=== PATIENT | female | born 2005 | race Two or more races ===

== ENCOUNTER 2024-09-11 04:17 | Emergency (ER) | payer MEDICAID, SELFPAY ==
[2024-09-11 04:18] VITALS: BP 107/61; PULSE 83; RESP 16; TEMP 36.2; O2SAT 99; BMI 28.3
[2024-09-11 04:37] LABS: MANUAL DIFF FLAG NO
[2024-09-11 04:38] LABS: Basophils Percent Auto 0.4 % (0-2); Eosinophils Absolute Auto 0.2 X10*3/uL (0.0-0.4); Eosinophils Percent Auto 1.7 % (0-4); Hemoglobin 12.4 g/dl (12.0-16.0); Imm Gran Abs Auto 0.03 X10*3/uL (0.00-0.03); Imm Gran Pct Auto 0.3 % (0.0-0.4); Lymphocytes Absolute Auto 2.5 X10*3/uL (1.2-4.9); Lymphocytes Percent Auto 24.4 % (20-40); Mean Corpuscular HGB Conc 33.5 g/dl (31.0-35.0); Mean Corpuscular Hemoglobin 26.2 pg (27.0-33.0); Mean Corpuscular Volume 78.1 fL (80.0-98.0); Mean Platelet Volume 10.1 fL (9.4-12.3); Monocytes Absolute Auto 0.8 X10*3/uL (0.1-1.2); Monocytes Percent Auto 7.3 % (2-11); Neutrophils Absolute Auto 6.8 x10*3/uL (2.0-8.3); Neutrophils Percent Auto 65.9 % (45-73); Platelet Count 330 X10*3/uL (160-400); Red Blood Count 4.74 X10*6/uL (4.20-5.50); Red Cell Distribution Width 12.7 % (11.0-16.0); White Blood Count 10.4 X10*3/uL (4.8-10.8)
--- NOTE | 2024-09-11 04:41 | ED_ITS ---
HPI - Abdominal Pain General Chief Complaint: Abdominal Pain Stated Complaint: Stomach Pain Time Seen by Provider: 09/11/24 04:35 Source: patient Mode of arrival: ambulatory Limitations: no limitations History of Present Illness ED Provider: Dr. Sintia Bah HPI narrative: Patient comes to the emergency room complaining of 2 weeks of epigastric burning sensation with food. Patient states that she can tolerate liquids but could not so much. Patient complaining of nausea vomiting , no diarrhea. Denies fever chills, no URI or UTI symptoms. Related Data Previous Rx's ?Medication ?Instructions ?Recorded doxylamine 20 mg-pyridoxine 20 mg 1 tab PO BID #20 tabs 09/11/24 tablet,immediate and delayed release vitamin no.167-folic acid 1 tab PO DAILY #30 tabs 09/11/24 400 mcg-dha 25 mg chewable tablet (One-A-Day ) Allergies Allergy/AdvReac Type Severity Reaction Status Date / Time No Known Allergies Allergy Verified 09/11/24 04:20 Review of Systems Review of Systems Constitutional : No Weight loss, No Fever, No Chills, No Night Sweats, No Fatigue, No Malaise ENT/Mouth : No Hearing loss, No Ear Pain, No Nasal Congestion, No Sinus Pain, No Hoarseness, No sore throat, No Rhinorrhea, No Swallowing Difficulty Eyes: No Eye Pain, No Swelling, No Redness, No Foreign Body, No Discharge, No Vision Changes Cardiovascular : No Chest Pain, No SOB, No Dyspnea on Exertion, No Orthopnea, No Edema, No Palpitations Respiratory : No Cough, No Sputum, No Wheezing, No Smoke Exposure, No Dyspnea Gastrointestinal : Complaining of nausea and vomiting No Diarrhea, No Constipation, complaining of epigastric burning sensation for 2 weeks, worse with eating solids Genitourinary : no irregular bleeding, No Dysuria, No Urinary Frequency, No Hematuria, No Urinary Incontinence, No Urgency, No Flank Pain, No Urinary Flow Changes, No Hesitancy Musculoskeletal : No joint pain, No Myalgias, No Joint Swelling Skin : No Skin Lesions, No rash Neuro : No Weakness, No Numbness, No Paresthesias, No Loss of Consciousness, No Dizziness, No Headache Psych : No Anxiety/Panic, No Depression, No SI/HI/AH/VH, No Social Issues, Heme/Lymph: No Bruising, No Bleeding,No Lymphadenopathy Endocrine : No Polyuria, No Polydipsia, No Temperature Intolerance [facility] Social History Social History Smoked in Last 30 Days: No Use of substances other than those prescribed or required for medical reasons: No Advance Directives: No Do you have a plan to hurt others: No Plan Physical Exam ED Vital Signs: Vital Signs - 24 hr 09/11/24 04:18 Temperature 97.1 F Pulse Rate 83 Respiratory Rate 16 Blood Pressure 107/61 Pulse Oximetry 99 Oxygen Delivery Method Room Air BMI result Body Mass Index 28.3 Const Other: Appearance: Alert. Oriented X3. No acute distress. Well appearing Eyes: Pupils equal, round and reactive to light. ENT: Pharynx normal. Neck: Normal inspection. Neck supple. No lymph nodes noted. No crepitus CVS: Normal heart rate and rhythm. Pulses normal. Normal S1 and S2 Respiratory: No respiratory distress. Breath sounds normal. No Wheezing. No rales Abdomen: Soft and nontender. No rigidity. No distention. Skin: Skin warm and dry. Normal skin color. Normal skin turgor. Extremities: No lower extremity edema. No Lacerations. No Rash Neuro: Oriented X 3. No motor deficit. No sensory deficit. Moving all extremities. No slurred speech. CN 2 through 12 grossly intact Psych: calm, cooperative, normal affect Course Course Course Narrative: -all of patient's labs pending -patient receiving a GI cocktail consisting of famotidine, Maalox and viscous lidocaine Medical Decision Making Medical Decision Making [facility] Narrative: My interpretation of labs: Normal hematology, chemistry, urine positive, beta hCG 119,551 -patient unaware that she was . 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 Patient states she had a miscarriage about 8 months ago Differential Diagnosis Differential Diagnoses: The differential diagnosis associated with the presentation includes (Gastritis, gastroenteritis, peptic ulcer disease, , nausea vomiting) Lab Data [facility] Lab Attestation statement: I reviewed the patient's lab results. 09/11/24 04:33 09/11/24 04:33 Labs: Lab Results 09/11/24 09/11/24 Range/Units 04:33 05:31 WBC 10.4 (4.8-10.8) X10*3/uL RBC 4.74 (4.20-5.50) X10*6/uL Hgb 12.4 (12.0-16.0) g/dl Hct 37.0 (37.0-47.0) % MCV 78.1 L (80.0-98.0) fL MCH 26.2 L (27.0-33.0) pg MCHC 33.5 (31.0-35.0) g/dl RDW 12.7 (11.0-16.0) % Plt Count 330 (160-400) X10*3/uL MPV 10.1 (9.4-12.3) fL Immature Gran % (Auto) 0.3 (0.0-0.4) % Neut % (Auto) 65.9 (45-73) % Lymph % (Auto) 24.4 (20-40) % [place] % (Auto) 7.3 (2-11) % Eos % (Auto) 1.7 (0-4) % Baso % (Auto) 0.4 (0-2) % Lymph # (Auto) 2.5 (1.2-4.9) X10*3/uL [place] # (Auto) 0.8 (0.1-1.2) X10*3/uL Eos # (Auto) 0.2 (0.0-0.4) X10*3/uL Baso # (Auto) 0.0 (0.0-0.2) X10*3/uL Abs Immat Gran (auto) 0.03 (0.00-0.03) X10*3/uL Absolute Neuts (auto) 6.8 (2.0-8.3) x10*3/uL Absolute Nucleated RBC 0.000 (0.0-0.012) X10*3/uL Nucleated RBC % (auto) 0.0 (0.0-0.2) /100WBC Sodium 139 (135-145) mmol/L Potassium 3.8 (3.3-5.1) mmol/L Chloride 110 H (96-108) mmol/L Carbon Dioxide 19 L (22-29) mmol/L Anion Gap 14 (12-20) BUN 10 (9-16) mg/dL Creatinine 0.75 (0.5-1.4) mg/dL Estim Creat Clear Calc 105.6 Estimated GFR > 60 Random Glucose 98 (60-115) mg/dL Calcium 8.6 (8.4-10.2) mg/dL Lipase 36 (8-78) U/L Beta HCG, Quant [id number] mIU/mL Urine Color Yellow Urine Appearance Clear Urine pH 7.0 (5.0-9.0) Ur Specific [place] >= 1.030 H (1.005-1.025) Urine Protein Trace (Neg-Trace) mg/dL Urine Glucose (UA) Negative (Negative) mg/dL Urine Ketones Negative (Negative) mg/dL Urine Blood Negative (Negative) Urine Nitrite Negative (Negative) Ur Leukocyte Esterase Negative (Negative) Urine Test POSITIVE H (NEGATIVE) Medications Administered Discontinued Medications Generic Name Dose Route Start Last Admin Trade Name Freq PRN Reason Stop Dose Admin Al Hydroxide/Mg Hydroxide 30 ml 09/11/24 04:40 09/11/24 05:04 Magnesium Hydrox/Alum Hydrox 30 Ml Oral.Susp PO 09/11/24 04:41 30 ml ONCE ONE Administration Famotidine 20 mg 09/11/24 04:40 09/11/24 05:04 Famotidine 20 Mg Tablet PO 09/11/24 04:41 20 mg ONCE ONE Administration Lidocaine HCl 15 ml 09/11/24 04:40 09/11/24 05:04 Lidocaine Hcl Viscous 2 % 15 Ml Solution MUCOUS MEM 09/11/24 04:41 15 ml ONCE ONE Administration Discharge Plan Discharge Clinical Impression: , Acute epigastric pain, Nausea & vomiting Patient Disposition: Home, Self-Care Instructions: Acute Nausea and Vomiting (ED) Additional Instructions: Please follow-up with your primary care physician tomorrow. If you have any worsening or new symptoms, please return to the emergency room or call 911 Prescriptions: New doxylamine-pyridoxine (vit B6) 20-20 mg tablet,IR,delayed rel,biphasic 1 tab PO BID Qty: 20 0RF One-A-Day 400 mcg- 25 mg tablet,chewable 1 tab PO DAILY Qty: 30 0RF Print Language: Latvian
[2024-09-11 04:51] LABS: Anion Gap 14 (12-20); Blood Urea Nitrogen 10 mg/dL (9-16); Calcium 8.6 mg/dL (8.4-10.2); Carbon Dioxide 19 mmol/L (22-29); Chloride 110 mmol/L (96-108); Creatinine Clr Calc Pharmacy 105.6; Estimated Glomerular Filt Rate > 60; Glucose Random 98 mg/dL (60-115); Lipase 36 U/L (8-78); Potassium 3.8 mmol/L (3.3-5.1); Sodium 139 mmol/L (135-145)
[2024-09-11] MEDS: Lidocaine HCl Viscous 2 % 15 ML SOLUTION MUCOUS MEM (05:04)
[2024-09-11] MEDS: Magnesium Hydrox/Alum Hydrox 30 ML ORAL.SUSP PO (05:04)
[2024-09-11] MEDS: Famotidine 20 MG TABLET PO (05:04)
[2024-09-11 05:37] LABS: Appearance Urine Clear; Color Urine Yellow; Glucose Urine UA Negative (Negative); Leukocyte Esterase Urine Negative (Negative); Nitrite Urine Negative (Negative); Specific Gravity - Urine >= 1.030 (1.005-1.025); Urine Blood Negative (Negative); Urine Ketones Negative (Negative); Urine Protein Trace mg/dL (Neg-Trace)
[2024-09-11 05:39] LABS: UPreg QC Valid YES; Urine Pregnancy POSITIVE (NEGATIVE)
[2024-09-11 05:40] LABS: HCG Quantitative 119551 mIU/mL
[2024-09-11 06:37] VITALS: BP 107/61; PULSE 83; RESP 16; TEMP 36.2; O2SAT 99
== END 2024-09-11 06:40 | disposition home or self-care (01) ==
PROVIDERS: Emergency Provider Emergency Medicine
DX: O26.899 Other specified pregnancy related conditions, unspecified trimester (principal); R10.13 Epigastric pain; R11.2 Nausea with vomiting, unspecified
CPT/HCPCS: 36415; 80048; 81003; 81025; 83690; 84702; 85025; 99283; 99284

== ENCOUNTER 2024-12-05 23:14 | Emergency (ER) | payer SELFPAY ==
[2024-12-05 23:20] VITALS: BP 119/73; PULSE 78; RESP 18; TEMP 36.6; O2SAT 100; BMI 27.2
[2024-12-05 23:35] VITALS: BP 119/73; PULSE 78; RESP 18; TEMP 36.6; O2SAT 100
[2024-12-05 23:45] LABS: MANUAL DIFF FLAG NO
[2024-12-05 23:55] LABS: Basophils Percent Auto 0.3 % (0-2); Eosinophils Absolute Auto 0.2 X10*3/uL (0.0-0.4); Hematocrit 40.7 % (37.0-47.0); Hemoglobin 13.4 g/dl (12.0-16.0); Imm Gran Abs Auto 0.04 X10*3/uL (0.00-0.03); Imm Gran Pct Auto 0.4 % (0.0-0.4); Lymphocytes Absolute Auto 2.4 X10*3/uL (1.2-4.9); Lymphocytes Percent Auto 23.7 % (20-40); Mean Corpuscular HGB Conc 32.9 g/dl (31.0-35.0); Mean Corpuscular Hemoglobin 26.1 pg (27.0-33.0); Mean Corpuscular Volume 79.3 fL (80.0-98.0); Mean Platelet Volume 9.9 fL (9.4-12.3); Monocytes Absolute Auto 0.8 X10*3/uL (0.1-1.2); Monocytes Percent Auto 8.1 % (2-11); Neutrophils Absolute Auto 6.6 x10*3/uL (2.0-8.3); Neutrophils Percent Auto 65.5 % (45-73); Platelet Count 312 X10*3/uL (160-400); Red Blood Count 5.13 X10*6/uL (4.20-5.50); Red Cell Distribution Width 13.5 % (11.0-16.0)
[2024-12-06 00:16] LABS: Alanine Aminotransferase 13 U/L (0-31); Albumin Level 4.4 g/dL (3.5-5.0); Alkaline Phosphatase 96 U/L (39-117); Anion Gap 10 (12-20); Aspartate Amino Transferase 19 U/L (5-31); Bilirubin Total 0.2 mg/dL (0.0-1.0); Blood Urea Nitrogen 13 mg/dL (9-16); Calcium 9.1 mg/dL (8.4-10.2); Carbon Dioxide 23 mmol/L (22-29); Chloride 109 mmol/L (96-108); Creatinine Clr Calc Pharmacy 107.6; Estimated Glomerular Filt Rate > 60; Glucose Random 108 mg/dL (60-115); Lipase 27 U/L (8-78); Potassium 3.6 mmol/L (3.3-5.1); Sodium 138 mmol/L (135-145)
[2024-12-06 00:20] LABS: HCG Quantitative < 2 mIU/mL
--- NOTE | 2024-12-06 01:29 | ED.GENADULT ---
HPI - General Adult General Chief complaint: Vaginal Bleeding Stated complaint: pain in the ovaries-bleeding Time Seen by Provider: 12/06/24 01:29 History of Present Illness ED Provider: Garcia [place] narrative: The patient is a 19-year-old female who says that she has been having problems with vaginal bleeding for almost 3 months. The patient says that her bleeding was very heavy last week and she was also having lower abdominal pain. She has had to miss some days at work. She has been in touch with her inspector material disposition at [facility]. She was told that she could not get an appointment for a couple of weeks and was advised to go to the emergency room. She has had no fever, sweats, chills. She has had some nausea but no vomiting. The patient received an IUD from the Gynecology office at [facility] about 3 months ago around the time her chronic vaginal bleeding problems started. Related Data Previous Rx's ?Medication ?Instructions ?Recorded doxylamine 20 mg-pyridoxine 20 mg 1 tab PO BID #20 tabs 09/11/24 tablet,immediate and delayed release vitamin no.167-folic acid 1 tab PO DAILY #30 tabs 09/11/24 400 mcg-dha 25 mg chewable tablet (One-A-Day ) ibuprofen 400 mg tablet 400 mg PO Q6H PRN pain #14 tabs 12/06/24 tranexamic acid 650 mg tablet 1,300 mg (2 x 650 mg) PO TID 5 12/06/24 days #30 tabs Allergies Allergy/AdvReac Type Severity Reaction Status Date / Time No Known Allergies Allergy Verified 12/05/24 23:20 Review of Systems Review of Systems: Yes all other systems are reviewed and are negative PMFSH Social History Social History Smoked in Last 30 Days: No Use of substances other than those prescribed or required for medical reasons: No Advance Directives: No Do you have a plan to hurt others: No Plan Patient : No Physical Exam ED Vital Signs: Vital Signs - 24 hr 12/05/24 23:20 12/05/24 23:35 12/06/24 01:45 Temperature 97.8 F 97.8 F 97.7 F Pulse Rate 78 78 80 Respiratory Rate 18 18 15 Blood Pressure 119/73 119/73 116/75 Pulse Oximetry 100 100 100 Oxygen Delivery Method Room Air Room Air Room Air 12/06/24 03:14 Temperature 97.7 F Pulse Rate 80 Respiratory Rate 15 Blood Pressure 116/75 Pulse Oximetry 100 Oxygen Delivery Method Room Air BMI result Body Mass Index 27.2 Const Other: The patient is awake and alert. She was reading something on her phone when I entered the room. She did not appear in any distress. HENMT Other: The face is symmetrical. ?Mucous membranes moist. Eyes Other: Pupils are round equal, conjunctivae are clear, extraocular movements intact. Neck Neck: Yes full ROM Resp Effort & Inspection: normal respiratory effort Auscultation: clear to auscultation bilaterally Cardio Rate: regular rate Rhythm: regular rhythm Heart sounds: S1 normal heart sound present and S2 normal heart sound present GI Other: The abdomen is soft. I did not appreciate any significant tenderness. Skin Other: Skin is dry and unremarkable Neuro Other: The patient is awake and alert with a normal mental status. Cranial nerves are intact. She moves her extremities normally. Her gait is normal. Extrem Other: No peripheral edema Medications Administered Discontinued Medications Generic Name Dose Route Start Last Admin Trade Name Laura PRN Reason Stop Dose Admin Acetaminophen 975 mg 12/06/24 01:38 12/06/24 01:47 Acetaminophen 325 Mg Tablet PO 12/06/24 01:39 975 mg ONCE ONE Administration Ketorolac Tromethamine 30 mg 12/06/24 01:38 12/06/24 01:48 Ketorolac Tromethamine 30 Mg/Ml Vial IM 12/06/24 01:39 30 mg ONCE ONE Administration Medical Decision Making Medical Decision Making [facility] Narrative: The patient is a 19-year-old female who seems to describe a lot of vaginal bleeding over the last few months. Clinically she looks well. Her hemoglobin is normal. She complains also some abdominal pain but her abdomen seems benign and she does not look uncomfortable. She is not . She apparently has an IUD. She was given an injection of ketorolac. She looks well enough for outpatient management. She has a inspector material disposition at [facility]. She will be placed on a course of TXA orally. She should follow up with her inspector material disposition next week. Lab Data 12/05/24 23:40 12/05/24 23:40 Labs: Lab Results 12/05/24 12/06/24 Range/Units 23:40 02:33 WBC 10.0 (4.8-10.8) X10*3/uL RBC 5.13 (4.20-5.50) X10*6/uL Hgb 13.4 (12.0-16.0) g/dl Hct 40.7 (37.0-47.0) % MCV 79.3 L (80.0-98.0) fL MCH 26.1 L (27.0-33.0) pg MCHC 32.9 (31.0-35.0) g/dl RDW 13.5 (11.0-16.0) % Plt Count 312 (160-400) X10*3/uL MPV 9.9 (9.4-12.3) fL Immature Gran % (Auto) 0.4 (0.0-0.4) % Neut % (Auto) 65.5 (45-73) % Lymph % (Auto) 23.7 (20-40) % [place] % (Auto) 8.1 (2-11) % Eos % (Auto) 2.0 (0-4) % Baso % (Auto) 0.3 (0-2) % Lymph # (Auto) 2.4 (1.2-4.9) X10*3/uL [place] # (Auto) 0.8 (0.1-1.2) X10*3/uL Eos # (Auto) 0.2 (0.0-0.4) X10*3/uL Baso # (Auto) 0.0 (0.0-0.2) X10*3/uL Abs Immat Gran (auto) 0.04 H (0.00-0.03) X10*3/uL Absolute Neuts (auto) 6.6 (2.0-8.3) x10*3/uL Absolute Nucleated RBC 0.000 (0.0-0.012) X10*3/uL Nucleated RBC % (auto) 0.0 (0.0-0.2) /100WBC Sodium 138 (135-145) mmol/L Potassium 3.6 (3.3-5.1) mmol/L Chloride 109 H (96-108) mmol/L Carbon Dioxide 23 (22-29) mmol/L Anion Gap 10 L (12-20) BUN 13 (9-16) mg/dL Creatinine 0.78 (0.5-1.4) mg/dL Estim Creat Clear Calc 107.6 Estimated GFR > 60 Random Glucose 108 (60-115) mg/dL Calcium 9.1 (8.4-10.2) mg/dL Total Bilirubin 0.2 (0.0-1.0) mg/dL AST 19 (5-31) U/L ALT 13 (0-31) U/L Alkaline Phosphatase 96 (39-117) U/L Total Protein 8.0 (6.5-8.0) g/dL Albumin 4.4 (3.5-5.0) g/dL Lipase 27 (8-78) U/L Beta HCG, Quant < 2 mIU/mL Urine Color Yellow Urine Appearance Cloudy Urine pH 6.5 (5.0-9.0) Ur Specific [place] >= 1.030 H (1.005-1.025) Urine Protein Trace (Neg-Trace) mg/dL Urine Glucose (UA) Negative (Negative) mg/dL Urine Ketones Negative (Negative) mg/dL Urine Blood Negative (Negative) Urine Nitrite Negative (Negative) Ur Leukocyte Esterase Negative (Negative) Discharge Plan Discharge Clinical Impression: Abnormal vaginal bleeding Patient Disposition: Home, Self-Care Additional Instructions: I have sent a prescription for a medicine called tranexamic. Please take this 3 times a day for 5 days. My hope is this will help reduce your bleeding. Your blood testing was very reassuring however. There is no sign of significant blood loss. Please keep your appointment with your regular inspector material disposition at [facility] next week as scheduled. You may use ibuprofen as needed for pain. Return to the emergency room if you feel significantly worse. Prescriptions: New tranexamic acid 650 mg tablet 1,300 mg PO TID 5 Days Qty: 30 0RF ibuprofen 400 mg tablet 400 mg PO Q6H PRN (Reason: pain) Qty: 14 0RF No Action doxylamine-pyridoxine (vit B6) 20-20 mg tablet,IR,delayed rel,biphasic 1 tab PO BID Qty: 20 0RF One-A-Day 400 mcg- 25 mg tablet,chewable 1 tab PO DAILY Qty: 30 0RF Referrals: Jonathan Hester MD [Physician] - (vaginal bleeding) Stand Alone Forms: Work/School Release Interventions: ED Discharge Assessment Last Done: 12/06/24 03:14 Discharge Date/Time: 12/06/24 03:16 Print Language: Irish
[2024-12-06 01:45] VITALS: BP 116/75; PULSE 80; RESP 15; TEMP 36.5; O2SAT 100
[2024-12-06] MEDS: Acetaminophen 325 MG TABLET 975 MG PO (01:47)
[2024-12-06] MEDS: Ketorolac Tromethamine 30 MG/ML VIAL IM (01:48)
[2024-12-06 02:40] LABS: Appearance Urine Cloudy; Color Urine Yellow; Glucose Urine UA Negative (Negative); Leukocyte Esterase Urine Negative (Negative); Nitrite Urine Negative (Negative); PH 6.5 (5.0-9.0); Specific Gravity - Urine >= 1.030 (1.005-1.025); Urine Blood Negative (Negative); Urine Ketones Negative (Negative); Urine Protein Trace mg/dL (Neg-Trace)
[2024-12-06 03:14] VITALS: BP 116/75; PULSE 80; RESP 15; TEMP 36.5; O2SAT 100
== END 2024-12-06 03:16 | disposition home or self-care (01) ==
PROVIDERS: Emergency Provider Emergency Medicine
DX: N93.9 Abnormal uterine and vaginal bleeding, unspecified (principal); Z97.5 Presence of (intrauterine) contraceptive device
CPT/HCPCS: 36415; 80053; 81003; 83690; 84702; 85025; 96372; 99284; J1885

== ENCOUNTER 2025-10-31 21:54 | Emergency (ER) | payer MEDICAID, SELFPAY ==
[2025-10-31 22:16] VITALS: BP 121/71; PULSE 85; RESP 18; TEMP 36.6; O2SAT 96; BMI 28.2
--- OUTSIDE RECORDS SUMMARY | 2025-11-01 00:09 | XMS_ITS | Encounter Summary ---
Author Organization [facility] Address [address] [place] [address] Care Team Providers Care Corrective Therapy Aide Teacher Name Role Phone Nakia Anthony Unavailable [phone] Tom Chicas MD Primary Care Provider [phone] Encounter Details Date Type Department Care Team (Late st Contact Info) Description 09/19/2024 Orders Only [facility] [address] [place] [address] Provider, Not In System Social History Tobacco Use Types Packs/Day Years Used Date Smoking Tobacco: Never Smokeless Tobacco: Never Alcohol Use Standard Drinks/Week Comments Not Currently 0 (1 standard drink = 0.6 oz pur e alcohol) Alcohol Answer Date Recorded How often do you have a drink containing alcohol ? 0 05/29/2024 How many drinks containing a lcohol do you have on a typical day when you are drinking? 0 05/29/2024 How often do you have six or more drinks on one occasion? 0 05/29/2024 Depression Answer Date Recorded Patient Health Questionnaire-9 Score 14 04/10/2024 Patient Health Questionnaire-9 Score 14 04/10/2024 Last PHQ-9: Questionnaire Data Not on file 0 04/10/2024 Housing Stability Answer Date Recorded What is your housing situation today? I have [employer] [place] 04/10/[address] you li ve. Do you have problems with any of the following? Pests such as bugs, ants, or mice;Mold;Inadequate heat;Water leaks 04/10/2024 Food Insecurity Answer Date Recorded Within the past 12 months, y ou worried that your food would run out before you got money to buy more: Sometimes True 2023 Within the past 12 months,th e food you bought just didn't last and you didn't have enough money to get more: Sometimes True 04/10/2024 Transportation Answer Date Recorded In the past 12 months, has l ack of transportation kept you from medical appts, meetings, work or from getting things needed for daily living? No 08/28/2023 Intimate Partner Violence Answer Date R ecorded Within the last year, have y ou been afraid of your partner or ex-partner? 2 05/29/2024 Within the last year, have y ou been humiliated or emotionally abused in other ways by your partner or ex-partner? 2 Within the last year, have y ou been kicked, hit, slapped, or otherwise physically hurt by your partner or ex-partner? 2 05/29/2024 Within the last year, have y ou been raped or forced to have any kind of sexual activity by your partner or ex-partner? 2 05/29/2024 Utilities Answer Date Recorded In the past 12 months, has t he electric, gas, oil or water company threatened to shut off services in your home? No 08/28/2023 Depression Answer Date Recorded Patient Health Questionnaire-2 Score 3 04/10/2024 Internet Access Answer Date Recorded Internet Access Q1 Yes 08/22/2024 Internet Access Q2 Not on file 08/22/2024 Comments No Sex and Gender Information Value Date Recorded Sex Assigned at Female 09/12/2022 10:35 AM EDT Legal Sex Female 10:35 AM EDT Gender Identity Female 09/12/2022 10:35 AM EDT Sexual Orientation Choose not to disclose 2021 10:35 AM EDT documented as of this encounter Plan of Treatment Upcoming Encounters Date Type Department Care Team (Late st Contact Info) Description 12/25/2025 12:40 PM EST Office Visit [facility] [address] [place] [address] Tom Chicas MD [address] [place] [address] documented as of this encounter Procedures Procedure Name Priority Date/Time Associated Diagnosis Comments TISSUE PATHOLOGY Routine 09/17/2024 8:43 AM EST documented in this encounter Results * Tissue Pathology (09/17/2024 8:43 AM EST) Tissue us Not In System Provider LAB PATHOLOGY ORDERABLES Edited Result - Final documented in this encounter Visit Diagnoses Not on filedocumented in this encounter Additional Health Concerns Assessment Noted Time PHQ-9 Depression Total Score: 14 024 3:21 PM EDT documented as of this encounter Care Teams Corrective Therapy Aide Teacher Relationship Specialty Start Date End Date Tom Chicas MD PCP - General Internal Medicine 08/15/24 Nakia Anthony FNP Family Medicine 09/09/22 documented as of this encounter
--- OUTSIDE RECORDS SUMMARY | 2025-11-01 00:09 | XMS_ITS | Encounter Summary ---
Author Organization [facility] Address [address] [place] [address] Care Team Providers Care Wire Harness Design Engineer Name Role Phone Nakia Anthony Unavailable [phone] Tom Chicas MD Primary Care Provider [phone] Encounter Details Date Type Department Care Team (Late st Contact Info) Description 11/20/2024 Orders Only [place] [facility] [address] [place] [address] Provider, Not In System Social [...] Description 12/25/2025 12:40 PM EST Office Visit [facility] [address] [place] [phone] Tom Chicas MD [address] [place] [address] documented as of this encounter Procedures Procedure Name Priority Date/Time Associated Diagnosis Comments BETA-HCG Routine 11/11/2024 3:26 PM EST documented in this encounter Results * Lactate dehydrogenase (11/11/2024 3:26 PM EST) Blood Venous blood specimen / Unknown us Not In System Provider LAB BLOOD ORDERABLES Edit ed Result - Final documented in this encounter Visit Diagnoses Not on filedocumented in this encounter Additional Health Concerns Assessment Noted Time PHQ-9 Depression Total Score: 14 024 3:21 PM EDT documented as of this encounter Care Teams Wire Harness Design Engineer Relationship Specialty Start Date End Date Tom Chicas MD PCP - General Internal Medicine 08/15/24 Nakia Anthony FNP Family Medicine 09/09/22 documented as of this encounter
--- OUTSIDE RECORDS SUMMARY | 2025-11-01 00:09 | XMS_ITS | Encounter Summary ---
Author Organization [facility] Address [address] [place] [address] Care Team Providers Care Asset Protection Professional Name Role Phone Nakia Anthony Unavailable [phone] Tom Chicas MD Primary Care Provider [phone] Encounter Details Date Type Department Care Team (Late st Contact Info) Description 08/21/2024 Orders Only [place] [facility] [address] [place] [address] Provider, Not In System Social [...] Description 12/25/2025 12:40 PM EST Office Visit [facility] [address] [place] [phone] Tom Chicas MD [address] [place] [address] documented as of this encounter Procedures Procedure Name Priority Date/Time Associated Diagnosis Comments INSULIN Routine 08/19/2024 8:10 AM EDT documented in this encounter Results * Insulin (08/19/2024 8:10 AM EDT) Blood Venous blood specimen / Unknown us Not In System Provider LAB BLOOD ORDERABLES Edit ed Result - Final documented in this encounter Visit Diagnoses Not on filedocumented in this encounter Additional Health Concerns Assessment Noted Time PHQ-9 Depression Total Score: 14 024 3:21 PM EDT documented as of this encounter Care Teams Asset Protection Professional Relationship Specialty Start Date End Date Tom Chicas MD PCP - General Internal Medicine 08/15/24 Nakia Anthony FNP Family Medicine 09/09/22 documented as of this encounter
--- OUTSIDE RECORDS SUMMARY | 2025-11-01 00:10 | XMS_ITS | Clinical Summary ---
Author Organization [facility] Address [address] [place] [address] Phone Care Team Providers Care Photographer Aerial Name Role Phone Lin Beaucahmp NP Primary Care Provider [phone] Allergies Active Allergy Reactions Criticality Noted Date Comments Latex Erythema Low 09/12/2024 Medications No known medications Active Problems Problem Noted Date Diagnosed Date IUD (intrauterine device) in place 10/17/2024 PCOS (polycystic ovarian syndrome) 05/06/2023 Assessment & Plan (05/06/2023 8:21 AM EDT): -Discussed s/sx of PCOS. -Advised that there is no cure for PCOS but that it is manageable -Ordered testosterone level -US from 02/13/23 reads: 1. Uterus appears grossly normal. 2. The endometrium appears somewhat echogenic and thickened measuring 13 mm but there are no focal masses or defects. 3. The ovaries contain multiple peripheral follicles in a pattern suggestive of PCOS. However, clinical correlation is required. 4. There is no free fluid. -Discussed ways on how to manage PCOS. -Recommended a Mirena IUD -An intrauterine device or IUD is a small T-shaped plastic device that is placed in the uterus for long-acting contraception. The Mirena or Kylenna contain levonorgestrel which is a progesterone only hormone. It works by thickening the cervical mucus which then slows the transport of the ovum through the fallopian tube and inhibits sperm motility and function. They are good for 5 years. Although new studies have shown that they are good for 6 years. This form of BC can decrease blood loss and dysmenorrhea during menses. In some women it completely stops their period. SE includes irregular bleeding or spotting for the first few months and/or absence or decrease in bleeding. There is a risk of expulsion of 2%-10% within the first year. We can place the IUD in the office. During placement procedure you may experience some cramping. There is a risk of perforating the uterus during insertion. However we measure the size of the uterus prior to inserting the IUD to avoid that risk. There is also a risk of infection. This procedure is performed in a sterile manner to avoid the risk of infection. You should use condoms for 7 days after insertion. The IUD does not protect against STI. All questions were answered. Pt chooses to continue with this method for BC. -She will schedule an appointment for placement Dysmenorrhea 04/02/2021 Assessment & Plan (05/06/2023 8:20 AM EDT): -Has her period every 3 months and sometimes twice a month. Ranges from heavy to light - test today was neg Assessment & Plan (04/15/2021 8:38 PM EDT): -Discussed possible etiologies for dysmenorrhea like PCOS. Pt is not concerned about her menses at this time. -Upreg neg. -Discussed that management of dysmenorrhea is starting BC Resolved Problems Problem Noted Date Diagnosed Date Resolved Date Unwanted 09/17/2024 Encounter for initial prescr iption of intrauterine contraceptive device (IUD) 09/17/2024 10/17/2024 Nexplanon removal 06/17/2024 10/17/2024 Pelvic pain 04/05/2023 01/06/2025 Assessment & Plan (05/06/2023 8:54 AM EDT): -Not currently taking OCPs -One partner her boyfriend Cis male monogamous -Discussed US results -Reviewed and discussed MD Ro recommendations from previous visit. -Recommended a Mirena IUD -Due to hx and based on s/sx it seems like PCOS is the curprit of her pain however Endometriosis has not been r/o. -Explained to the pt that the one true way of diagnosing endometriosis is by doing a diagnostic Laparoscopy surgery. -Given that she has not truly tried symptomatic relieve by OCPS or IUDs. I strongly recommended her to try a form of BC first before getting a diagnostic Laparoscopy. Advised that we are well experienced in treating PCOS s/sx and that we should try to manage that first. Pt agrees and inquired more info on BC. -BC pamphlets given to pt control counseling 04/02/2021 Assessment & Plan (04/15/2021 8:44 PM EDT): -Discussed safe sex practices and ways of preventing STI. -Pt will like STI testing today including serum testing -Discussed contraceptive options of Nexplanon, IUDs, OCPs, Nuvaring, Depo Provera, condoms, diaphragm, spermicide, and sterilization. Reviewed risks, benefits, side effects and effectiveness of each method. Pt advised that BC does not protect against STI and recommended condom use for the protection of STI. -Advised that an IUD is as effective as a BTL with the exception that it is reversible. Advised that because of her age OBs may not do a BTL. -Pt requested more information on an IUD -An intrauterine device or IUD is a small T-shaped plastic device that is placed in the uterus for long-acting contraception. The Mirena or Kylenna contain levonorgestrel which is a progesterone only hormone. It works by thickening the cervical mucus which then slows the transport of the ovum through the fallopian tube and inhibits sperm motility and function. They are good for 5 years. Although new studies have shown that they are good for 6 years. This form of BC can decrease blood loss and dysmenorrhea during menses. In some women it completely stops their period. SE includes irregular bleeding or spotting for the first few months and/or absence or decrease in bleeding. There is a risk of expulsion of 2%-10% within the first year. We can place the IUD in the office. During placement procedure you may experience some cramping. There is a risk of perforating the uterus during insertion. However we measure the size of the uterus prior to inserting the IUD to avoid that risk. There is also a risk of infection. This procedure is performed in a sterile manner to avoid the risk of infection. You should use condoms for 7 days after insertion. The IUD does not protect against STI. All questions were answered. -Pt considering Mirena IUD. Informational Pamphlet given -Pt will call to make an appointment for IUD placement Encounters Date Type Department Care Team Description 09/09/2025 3:22 PM EDT - 09/09/2025 11:59 PM EDT Hospital Encounter [facility] [address] [place] [address] Luis Alberto Hayes MD Discharge Disposition: Home or Self Care 09/08/2025 Telephone [facility] Obstetrics [facility] Gynecology Clinic [facility] [place] [address] Alondra Moy, RN UPTs from Last 3 Months Immunizations Immunization Administration Dates Next Due DTaP-IPV 12/30/2008, 5,2005,2004, HPV9 08/01/2019,07/10/2018 Hepatitis B Adult 2004,2004,02/26/20 04 Hib,PRP-T 06/09/2005,2004,2004 IPV 10/16/2008,2005,2004 ,2004 MMR 08/16/2006,2005 Meningococcal MCV4P 11/16/2020 Pneumococcal conjugate PCV13 2005,12/09/19 05 Rho (D) Immune Globulin 09/17/2024,01/10/2024 Tdap 07/10/2018 Varicella 10/23/2008,2005 Family History Medical History Relation Comments Psychiatric disorder Brother Psychiatric disorder Mother Relation Status Comments Brother Mother Social History Tobacco Use Types Packs/Day Years Used Date Smoking Tobacco: Never Smokeless Tobacco: Never Tobacco Cessation:Counseling Given: Not Answered Alcohol Use Standard Drinks/Week Comments Never 0 (1 standard drink = 0.6 oz pur e alcohol) Education Answer Date Recorded Are you interested in more education? Not on demario e 03/10/2023 Are you concerned about learning? Not on file 03/10/2023 No 03/10/2023 No 03/10/2023 Digital Access Answer Date Recorded No 04/05/2023 No 04/05/2023 Reliable internet access at home? Not on file 04/05/2023 Device with a working camera? Not on file Intimate Partner Violence Answer Date R ecorded Are you denied basic needs s uch as food, clothing, or medical care? No 09/17/2024 In the past 12 months have y ou been in a relationship with a person who hurts, threatens, or tries to control you? No 09/17/2024 Are you denied basic needs s uch as food, clothing, or medical care? No 09/17/2024 In the past 12 months have y ou been in a relationship with a person who hurts, threatens, or tries to control you? No 09/17/2024 Comments No Sex and Gender Information Value Date Recorded Sex Assigned at Not on file Legal Sex Female 8:40 AM EDT Gender Identity Not on file Sexual Orientation Not on file Last Filed Vital Signs Vital Sign Reading Time Taken Comments Blood Pressure 120/70 03/14/2025 4:03 PM EDT Pulse 67 09/17/2024 12:05 PM EST Temperature 36.1 C (97 F) 09/17/2024 12:35 PM EST Respiratory Rate 22 09/17/2024 12:05 PM EST Oxygen Saturation 99% 09/17/2024 12:35 PM EST Inhaled Oxygen Concentration - - Weight 68 kg (150 lb) 11/11/2024 8:37 AM EST Height 160 cm (5' 3 ) 03/14/2025 4:03 PM EDT Body Mass Index 26.57 10/17/2024 12:04 PM EST Plan of Treatment Health Maintenance Due Date Last Done Comments DEPRESSION SCREENING 2016 MENINGOCOCCAL VACCINES (B) (1 of 2 - Standard) 2020 ADOLESCENT UNIVERSAL LIPID SCREENING 02/22/2021 PAP SMEAR 02/22/2025 INFLUENZA VACCINE (#1) 2025 COVID-19 VACCINE (2 - season) 2025 07/21/2022 SMOKING Hx and SMOKELESS TOBACCO SCREENING 01/02/2026 01/02/2025 CHLAMYDIA SCREENING 01/24/2026 01/24/2025, 09/17/2024, 01/05/2024, Additional history exists Adult Td,Tdap Booster 07/10/2028 07/10/2018 COMBINED DTaP,Tdap,Td (6 - Td or Tdap) 07/10/2028 07/10/2018, 12/30/2008, 06/09/2005, Additional history exists PNEUMOCOCCAL VACCINES (0-49 years) Aged Out 2005, 2004 No longer eligibl e based on patient's age to complete this topic HIB VACCINES Completed 06/09/2005, 11/14, 2004 MMR VACCINES Completed 08/16/2006, 2005 HPV VACCINES Completed 08/01/2019, 07/10/2018 MENINGOCOCCAL VACCINES (ACWY) Completed 11/16/2020 HEPATITIS C SCREENING Completed 01/24/2025, 025 HIV ONE-TIME SCREENING (18-65 YEARS) Completed 01/24/2025 HEPATITIS A VACCINES Aged Out No long er eligible based on patient's age to complete this topic Medical Devices Implanted Type Area Adjuster Arbitrator Device Identifier Shelf Expiration Date Model / Serial / Lot Iud Implanted:06/19 (Quantity not on file) Intrauterine Device Device Contraceptive 52mg Iud Mirena - Must Order In Multiples Of 5 - [id number] Implanted:Qty: 1 on 09/17/2024 by Mago Solo MD at [facility] N/A: Uterus [facility] [place] 10/12/2026 [id number] / [id number] / [id number] Procedures Procedure Name Priority Date/Time Associated Diagnosis Comments HUMAN CHORIONIC GONADOTROPIN (HCG), QUANTITATIVE, BLOOD Routine 09/09/2025 3:31 PM EDT Positive urine test CHLAMYDIA TRACHOMATIS AND NEISSERIA GONORRHOEAE NUCLEIC ACID DETECTION Routine 01/24/2025 3:15 PM EDT Screening for STD (sexually transmitted disease) HEPATITIS C ANTIBODY, QUALITATIVE Routine 01/24/2025 3:15 PM EDT Screening for STD (sexually transmitted disease) from Last 3 Months or Most Recently Relevant to Health Maintenance Results * HCG (Quantitative, Blood) (09/09/2025 3:31 PM EDT) HCG BETA 0.2 mIU/mL [facility] Comment: Interpretation: FEMALE: Negative: Less than or equal to 1 mIU/mL. 4 Weeks Post Conception: 9.5 - 750 mIU/mL. 12 Weeks Post Conception: [id number] - [id number] mIU/mL. Test Methodology Sayra [id number] Patient results determined by assays using different manufacturers or methods may not be comparable. Blood 09/09/2025 3:31 PM EDT 09/09/2025 3:43 PM EDT Luis Alberto Hayes MD LAB BLOOD BKR ORDERABLES Dalia l Result Performing Organization Address [facility]/ZIP Co de Phone Number [address] [address] * Chlamydia trachomatis and Neisseria gonorrhoeae Nucleic Acid Amplification (01/24/2025 3:15 PM EDT) CHLAMYDIA TRACHOMATIS Not Detected Not Detected [facility] NEISERIA GONORRHOEAE Not Detected Not Detected [facility] SPECIMEN TYPE URINE [facility] Urine (Urine) 01/24/2025 3:1 5 PM EDT 01/24/2025 3:17 PM EDT Luis Alberto Hayes MD LAB GENERAL ORDERABLES Final Result Performing Organization Address [facility] Co de Phone Number [address] [address] * Hepatitis C antibody, qualitative (01/24/2025 3:15 PM EDT) HCV NON-REACTIV E NON-REACTI VE [facility] Blood 01/24/2025 3:15 PM EDT 01/24/2025 3:16 PM EDT Luis Alberto Hayes MD LAB BLOOD BKR ORDERABLES Dalia l Result Performing Organization Address [facility] Co de Phone Number [address] [phone] from Last 3 Months or Most Recently Relevant to Health Maintenance Insurance [employer] NET PARTIAL Member Subscriber Plan / Payer (Ef fective 2025-) Name:Arron Zhang Sang Relation to Subscriber:Self Name:Arron Zhang Sang Payer ID:Not on file Group ID:Not on file Type:Medicaid Address: [address] [employer] NET PARTIAL Member Subscriber Plan / Payer (Ef fective 2025-) Name:Sang Estevez Relation to Subscriber:Self Name:Sang Estevez Payer ID:Not on file Group ID:Not on file Type:Medicaid Address: [address] [employer] NET PARTIAL Member Subscriber Plan / Payer (Ef fective 2025-Present) Name:Sang Estevez Relation to Subscriber:Self Name:Sang Estevez Payer ID:Not on file Group ID:Not on file Type:Medicaid Address: [address] [employer] [facility] SAFETY NET PARTIAL Member Subscriber Plan / Payer (Ef fective 2025-) Name:Sang Estevez Relation to Subscriber:Self Name:Sang Estevez Payer ID:Not on file Group ID:Not on file Type:Medicaid Address: [address] [employer] NET PARTIAL Member Subscriber Plan / Payer (Ef fective 2025-Present) Name:Sang Estevez Relation to Subscriber:Self Name:Sang Estevez Payer ID:Not on file Group ID:Not on file Type:Medicaid Address: [address] [employer] [facility] SAFETY NET PARTIAL [facility] [employer] Care Teams Photographer Aerial Relationship Specialty Start Date End Date Lin Beauchamp NP [address] [facility] [address] [id number] PCP - General Pediatrics 03/16/21 Additional Source Comments The information contained in this document represents components of the legal health record. It is not the complete legal health record.[facility]
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
--- OUTSIDE RECORDS SUMMARY | 2025-11-01 00:10 | XMS_ITS | Encounter Summary ---
Author Organization [facility] Address [address] [facility] 7t [place] [address] Care Team Providers Care Automotive Mechanical Engineer Name Role Phone Nakia Anthony Unavailable [phone] Nakia Anthony Primary Care Provider [phone] Tom Chicas MD Primary Care Provider [phone] Encounter Details Date Type Department Care Team (Late st Contact Info) Description 2024 Orders Only [facility] Information Management [address] [place] [address] Provider, Not In System Social History Tobacco Use Types Packs/Day Years Used Date Smoking Tobacco: Never Smokeless Tobacco: Never Alcohol Use Standard Drinks/Week Comments Not Currently 0 (1 standard drink = 0.6 oz pur e alcohol) Depression Answer Date Recorded Patient Health Questionnaire-9 Score 15 08/04/2023 Housing Stability Answer Date Recorded What is your housing situation today? I have federica haynes 08/21/[address] you li ve. Do you have problems with any of the following? Pests such as bugs, ants, or mice;Mold 08/21/2023 Food Insecurity Answer Date Recorded Within the past 12 months, y ou worried that your food would run out before you got money to buy more: Never True 08/28/2023 Within the past 12 months,th e food you bought just didn't last and you didn't have enough money to get more: Never True Transportation Answer Date Recorded In the past 12 months, has l ack of transportation kept you from medical appts, meetings, work or from getting things needed for daily living? No 08/28/2023 Utilities Answer Date Recorded In the past 12 months, has t he electric, gas, oil or water company threatened to shut off services in your home? No 08/28/2023 Depression Answer Date Recorded Patient Health Questionnaire-2 Score 3 08/04/2023 Comments No Sex and Gender Information Value [...] Description 12/25/2025 12:40 PM EST Office Visit [facility] 8 [place] [address] Tom Chicas MD 8 [place] [address] documented as of this encounter Procedures Procedure Name Priority Date/Time Associated Diagnosis Comments US PELVIS TRANSABDOMINAL Routine 024 10:24 AM EST US PELVIS TRANSABDOMINAL Routine 023 10:22 AM EST documented in this encounter Results * US Pelvis Transabdominal (01/06/2024 10:24 AM EST) Anatomical Region Laterality Modality Pelvis Ultrasound us Not In System Provider IMG US PROCEDURES Final R esult * US Pelvis Transabdominal (10/28/2023 10:22 AM EST) Anatomical Region Laterality Modality Pelvis Ultrasound us Not In System Provider IMG US PROCEDURES Final R esult documented in this encounter Visit Diagnoses Not on filedocumented in this encounter Additional Health Concerns Assessment Noted Time PHQ-9 Depression Total Score: 15 023 3:17 PM EDT documented as of this encounter Care Teams Automotive Mechanical Engineer Relationship Specialty Start Date End Date Nakia Anthony FNP PCP - General Family Medicine 04/20/23 08/14/24 Tom Chicas MD PCP - General Internal Medicine 08/15/24 Nakia Anthony FNP Family Medicine 09/09/22 documented as of this encounter
--- OUTSIDE RECORDS SUMMARY | 2025-11-01 00:10 | XMS_ITS | Encounter Summary ---
Author Organization [facility] Address [address] [facility] 7t [place] [address] Care Team Providers Care Laser Beam Cutter Name Role Phone Nakia Anthony Unavailable [phone] Tom Chicas MD Primary Care Provider [phone] Encounter Details Date Type Department Care Team (Late st Contact Info) Description 08/22/2024 Orders Only [facility] [address] [place] [address] Provider, Not In System Social [...] Description 12/25/2025 12:40 PM EST Office Visit [facility] 8 [place] [phone] Tom Chicas MD 8 [place] [address] documented as of this encounter Procedures Procedure Name Priority Date/Time Associated Diagnosis Comments DHEA SULFATE Routine 08/19/2024 7:46 AM EDT documented in this encounter Results * DHEA Sulfate (08/19/2024 7:46 AM EDT) Blood Venous blood specimen / Unknown us Not In System Provider LAB BLOOD ORDERABLES Edit ed Result - Final documented in this encounter Visit Diagnoses Not on filedocumented in this encounter Additional Health Concerns Assessment Noted Time PHQ-9 Depression Total Score: 14 024 3:21 PM EDT documented as of this encounter Care Teams Laser Beam Cutter Relationship Specialty Start Date End Date Tom Chicas MD PCP - General Internal Medicine 08/15/24 Nakia Anthony FNP Family Medicine 09/09/22 documented as of this encounter
--- OUTSIDE RECORDS SUMMARY | 2025-11-01 00:10 | XMS_ITS | Encounter Summary ---
Author Organization [employer] [facility] Address [address] [facility] 7[address] [place] [address] Care Team Providers Care Toll Transmission Worker Name Role Phone Nakia Anthony Unavailable [phone] Nakia Anthony Primary Care Provider [phone] Tom Chicas MD Primary Care Provider [phone] Encounter Details Date Type Department Care Team (Late st Contact Info) Description 07/25/2023 Orders Only [facility] [address] [facility] [place] [address] [place] Social History Tobacco Use Types Packs/Day Years Used Date Smoking Tobacco: Never Smokeless Tobacco: Never Alcohol Use Standard Drinks/Week Comments Not Currently 0 (1 standard drink = 0.6 oz pur e alcohol) Comments No Sex and Gender Information Value [...] Description 12/25/2025 12:40 PM EST Office Visit [facility] 8 [place] [address] Tom Chicas MD 8 [place] [address] documented as of this encounter Procedures Procedure Name Priority Date/Time Associated Diagnosis Comments HM HEPATITIS C ANTIBODY Routine 12/15/2021 documented in this encounter Results * HM Hepatitis C Antibody (12/15/2021) Hepatitis C Antibody Nonreactive Blood Historical Provider HEALTH MAINTENANCE Final Result documented in this encounter Visit Diagnoses Not on filedocumented in this encounter Care Teams Toll Transmission Worker Relationship Specialty Start Date End Date Nakia Anthony FNP PCP - General Family Medicine 04/20/23 08/14/24 Tom Chicas MD PCP - General Internal Medicine 08/15/24 Nakia Anthony FNP Family Medicine 09/09/22 documented as of this encounter
--- OUTSIDE RECORDS SUMMARY | 2025-11-01 00:10 | XMS_ITS | Encounter Summary ---
Author Organization [employer] [facility] Address [address] [facility] [address] [place] [address] Care Team Providers Care Print Graphic Designer Name Role Phone Nakia Anthony Unavailable [phone] Nakia Anthony Primary Care Provider [phone] Tom Chicas MD Primary Care Provider [phone] Reason for Visit * Reason Onset Date Comments Appointment Request 07/10/2023 Pt comes to office stating abdo pain, believes it is related to her IUD that was placed on 06/19/23, at another facilityBest number to CB: [phone] Encounter Details Date Type Department Care Team (Late st Contact Info) Description 07/10/[address] [facility] [place] [place] [address] [place] [address] Nakia Anthony FNP 8 [place] [address] Appointment Request (Pt comes to office stating abdo pain, believes it is related to her IUD that was placed on 06/19/23, at another facility/Best number to CB: [phone]) Social History Tobacco Use Types Packs/Day Years [...] AM EDT documented as of this encounter Miscellaneous Notes * Telephone Encounter - Judith Bell LPN - 07/11/2023 9:24 AM EDT LMTCB via motor vehicle parts interpreter documented in this encounter Plan of Treatment Upcoming Encounters Date Type Department Care Team (Late st Contact Info) Description 12/25/2025 12:40 PM EST Office Visit [facility] 8 [place] [address] Tom Chicas MD 8 [place] [address] documented as of this encounter Visit Diagnoses Not on filedocumented in this encounter Care Teams Print Graphic Designer Relationship Specialty Start Date End Date Nakia Anthony FNP PCP - General Family Medicine 04/20/23 08/14/24 Tom Chicas MD PCP - General Internal Medicine 08/15/24 Nakia Anthony FNP Family Medicine 09/09/22 documented as of this encounter
--- OUTSIDE RECORDS SUMMARY | 2025-11-01 00:10 | XMS_ITS | Encounter Summary ---
Author Organization [employer] Address [address] [facility] 7[address] [place] [address] Care Team Providers Care Enterprise Systems Engineer Name Role Phone Nakia Anthony Unavailable [phone] Nakia Anthony Primary Care Provider [phone] Tom Chicas MD Primary Care Provider [phone] Encounter Details Date Type Department Care Team ([facility] st Contact Info) Description 07/12/2024 Telephone [facility] [address] [place] [address] Nakia Anthony FNP 8 [place] [address] Social History Tobacco Use Types Packs/Day Years [...] housing situation today? I have federica haynes 04/10/[address] you [...] Recorded Patient Health Questionnaire-2 Score 3 04/10/2024 Comments No Sex and Gender Information Value Date Recorded Sex Assigned at Female 09/12/2022 10:35 AM EDT Legal Sex Female 10:35 AM EDT Gender Identity Female 09/12/2022 10:35 AM EDT Sexual Orientation Choose not to disclose 2021 10:35 AM EDT documented as of this encounter Miscellaneous Notes * Telephone Encounter - Sharla Valentine RN - 07/17/2024 1:41 PM EDT Spoke with patient states s;ymptoms have not improved, and has been unable to work since the last appt. Informed her that if she has concerns about her job she should talk with her HR department about FMLA paper work an appt has been set up for 07/19 at 1040. * Telephone Encounter - Nora Schulz - 07/12/2024 9:33 AM EDT Pt calling as still having problems with the ovaries and waiting to see the electrical system specialist 08/08. Pt states was told by nakia if she needed another work note don't hesitate to call. pt is asking for the out of work note. Pt slso called about a wart on the face and getting bigger ,appt was booked to see Nakia Samson on 07/30. documented in this encounter Plan of Treatment Upcoming Encounters Date Type Department Care Team (Late st Contact Info) Description 12/25/2025 12:40 PM EST Office Visit [address] [address] Tom Chicas MD 8 [place] [address] documented as of this encounter Visit Diagnoses Not on filedocumented in this encounter Additional Health Concerns Assessment Noted Time PHQ-9 Depression Total Score: 14 024 3:21 PM EDT documented as of this encounter Care Teams Enterprise Systems Engineer Relationship Specialty Start Date End Date Nakia Anthony FNP PCP - General Family Medicine 04/20/23 08/14/24 Tom Chicas MD PCP - General Internal Medicine 08/15/24 Nakia Anthony FNP Family Medicine 09/09/22 documented as of this encounter
--- OUTSIDE RECORDS SUMMARY | 2025-11-01 00:10 | XMS_ITS | Encounter Summary ---
Author Organization [employer] Address [address] [facility] [address] 7t [place] [address] Care Team Providers Care Finisher Card Tender Name Role Phone Nakia Anthony ERAN Unavailable Tom Chicas MD Primary Care Provider [phone] Encounter Details Date Type Department Care Team (Late st Contact Info) Description 09/29/[address] [address] Tom Chicas MD [address] [place] [address] Social History Tobacco Use Types Packs/Day Years [...] the past 12 months, has t he [place], gas, oil or water company threatened to shut off services in your home? No 09/23/2025 Depression Answer Date Recorded Patient Health Questionnaire-2 Score 3 04/10/2024 Internet Access Answer Date Recorded Internet Access Q1 Yes 09/23/2025 Internet Access Q2 Not on file 09/23/2025 Comments No Sex and Gender Information Value Date Recorded Sex Assigned at Female 09/12/2022 10:35 AM EDT Legal Sex Female 10:35 AM EDT Gender Identity Female 09/12/2022 10:35 AM EDT Sexual Orientation Choose not to disclose 2021 10:35 AM EDT documented as of this encounter Miscellaneous Notes * Telephone Encounter - Vidal Dai - 09/29/2025 4:03 PM EST Patient is calling because they want an update on the lab results from 09/23/25. Please advise [phone] documented in this encounter Plan of Treatment Upcoming Encounters Date Type Department Care Team (Late st Contact Info) Description 12/25/2025 12:40 PM EST Office Visit [facility] 8 [place] [address] Tom Chicas MD 8 [place] [address] documented as of this encounter Visit Diagnoses Not on filedocumented in this encounter Additional Health Concerns Assessment Noted Time PHQ-9 Depression Total Score: 14 024 3:21 PM EDT documented as of this encounter Care Teams Finisher Card Tender Relationship Specialty Start Date End Date Tom Chicas MD PCP - General Internal Medicine 08/15/24 Nakia Anthony FNP Family Medicine 09/09/22 documented as of this encounter
--- OUTSIDE RECORDS SUMMARY | 2025-11-01 00:10 | XMS_ITS | Encounter Summary ---
Author Organization [employer] [facility] Address [address] [facility] 7t [place] [address] Care Team Providers Care Professor Of Visual Arts Name Role Phone Nakia Anthony Unavailable [phone] Tom Chicas MD Primary Care Provider [phone] Encounter Details Date Type Department Care Team (Late st Contact Info) Description 08/20/2024 Orders Only [facility] [address] [place] [address] Provider, Not In System Social [...] Description 12/25/2025 12:40 PM EST Office Visit [facility] 8 [place] [phone] Tom Chicas MD 8 [place] [address] documented as of this encounter Procedures Procedure Name Priority Date/Time Associated Diagnosis Comments CBC Routine 09/30/2024 8:55 AM EST documented in this encounter Results * CBC (09/30/2024 8:55 AM EST) Blood Venous blood specimen / Unknown us Not In System Provider LAB BLOOD ORDERABLES Edit ed Result - Final documented in this encounter Visit Diagnoses Not on filedocumented in this encounter Additional Health Concerns Assessment Noted Time PHQ-9 Depression Total Score: 14 024 3:21 PM EDT documented as of this encounter Care Teams Professor Of Visual Arts Relationship Specialty Start Date End Date Tom Chicas MD PCP - General Internal Medicine 08/15/24 Nakia Anthony FNP Family Medicine 09/09/22 documented as of this encounter
--- OUTSIDE RECORDS SUMMARY | 2025-11-01 00:10 | XMS_ITS | Encounter Summary ---
Author Organization [facility] Address [address] [facility] 7t [place] [address] Care Team Providers Care Thermal Engineer Name Role Phone Nakia Anthony Unavailable [phone] Tom Chicas MD Primary Care Provider [phone] Encounter Details Date Type Department Care Team (Late st Contact Info) Description 09/18/2024 Orders Only [facility] [address] [place] [address] Provider, Not In System Social [...] Description 12/25/2025 12:40 PM EST Office Visit [facility] 8 [place] [phone] Tom Chicas MD 8 [place], [place] [phone] documented as of this encounter Procedures Procedure Name Priority Date/Time Associated Diagnosis Comments RHO (D) IMMUNE GLOBULIN IMMUNIZATION Routine 09/17/2024 12:31 PM EST documented in this encounter Results * Rhogam Immune Globulin Immunization (09/17/2024 12:31 PM EST) us Not In System Provider IMMUNIZATION ORDERABLES F inal Result documented in this encounter Visit Diagnoses Not on filedocumented in this encounter Additional Health Concerns Assessment Noted Time PHQ-9 Depression Total Score: 14 024 3:21 PM EDT documented as of this encounter Care Teams Thermal Engineer Relationship Specialty Start Date End Date Tom Chicas MD PCP - General Internal Medicine 08/15/24 Nakia Anthony FNP Family Medicine 09/09/22 documented as of this encounter
--- OUTSIDE RECORDS SUMMARY | 2025-11-01 00:10 | XMS_ITS | Encounter Summary ---
Author Organization [facility] Address [address] [facility] [address] [place] [address] Phone Care Team Providers Care Embosser Apprentice Name Role Phone Lin Beauchamp NP Primary Care Provider [phone] Encounter Details Date Type Department Care Team (Late st Contact Info) Description 09/17/2024 Procedure Pass OR Admitting Dept - Virtual Department [address] [place] [address] Social History Tobacco Use Types Packs/Day Years Used Date Smoking Tobacco: Never Smokeless Tobacco: Never Alcohol Use Standard Drinks/Week Comments Never 0 [...] tries to control you? No 09/17/2024 Comments Yes Sex and Gender Information Value Date Recorded Sex Assigned at Not on file Legal Sex Female 8:40 AM EDT Gender Identity Not on file Sexual Orientation Not on file documented as of this encounter Plan of Treatment Not on file documented as of this encounter Visit Diagnoses Not on filedocumented in this encounter Care Teams Embosser Apprentice Relationship Specialty Start Date End Date Lin Beauchamp NP [address] [place] [address] PCP - General Pediatrics 03/16/21 documented as of this encounter Additional Source Comments The information contained in this document represents components of the legal health record. It is not the complete legal health record.[facility]
--- OUTSIDE RECORDS SUMMARY | 2025-11-01 00:10 | XMS_ITS | Encounter Summary ---
Author Organization [employer] Address [address] [facility] 7t [place] [address] Care Team Providers Care Sales Office Administrator Name Role Phone Nakia Anthony ERAN Unavailable [phone] Tom Chicas MD Primary Care Provider [phone] Encounter Details Date Type Department Care Team (Latest Contact Info) Description 10/02/2025 Results Follow-Up [facility] [address] [place] [phone] Tom Chicas MD [address] [place] [phone] Latex (G06) IgE, CBC, Comprehensive Metabolic Panel, Additional followed-up results: 7 Social History Tobacco Use Types Packs/Day Years [...] Description 12/25/2025 12:40 PM EST Office Visit [address] [address] Tom Chicas MD [address] [place] [address] documented as of this encounter Visit Diagnoses Not on filedocumented in this encounter Additional Health Concerns Assessment Noted Time PHQ-9 Depression Total Score: 14 024 3:21 PM EDT documented as of this encounter Care Teams Sales Office Administrator Relationship Specialty Start Date End Date Tom Chicas MD PCP - General Internal Medicine 08/15/24 Nakia Anthony FNP Family Medicine 09/09/22 documented as of this encounter
[2025-11-01 00:12] VITALS: BP 124/76; PULSE 79; RESP 16; TEMP 36.7; O2SAT 99
--- NOTE | 2025-11-01 01:37 | ED_ITS ---
HPI - General Adult General Chief complaint: Animal Bite Stated complaint: mouse urine got on her? Time Seen by Provider: 11/01/25 01:11 History of Present Illness HPI narrative: Patient is a 20-year-old female initially claims that she had a rash because she was using a towel that was filled with red urine. Patient complains that she has a rash in her genital area. She has been washing it 3 times a day. She is also complaining that she has some yellowish discharge. She is sexually active with 1 partner use a condom there is no pain. There is some yellowish discharge. Patient is from home. No systemic complaints no pain on urination does not think she is . Related Data Previous Rx's ?Medication ?Instructions ?Recorded doxylamine 20 mg-pyridoxine 20 mg 1 tab PO BID #20 tab s 09/11/24 tablet,immediate and delayed release vitamins no.167-folic 1 tab PO DAILY #30 tabs 09/11/24 acid 400 mcg-dha 25 mg chewable tablet (One-A-Day ) ibuprofen 400 mg tablet 400 mg PO Q6H PRN pain #14 t abs 12/06/24 tranexamic acid 650 mg tablet 1,300 mg (2 x 650 mg) PO TID 5 12/06/24 days #30 tabs doxycycline hyclate 100 mg capsule 100 mg PO BID cough 10 days #20 11/01/25 caps hydrocortisone 1 % topical cream [address] N itching 11/01/25 (Anti-Itch (hydrocortisone)) #28.35 grams Allergies Allergy/AdvReac Type Severity Reaction Status Date / Time No Known Allergies Allergy Verified 10/31/25 22:17 Review of Systems Review of Systems: Positive rash Positive yellowish discharge Yes all other systems are reviewed and are negative [facility] Past Medical History Attestation statement: The following information was validated with the patient. Social History Social History Smoked in Last 30 Days: No Use of substances other than those prescribed or required for medical reasons: No Advance Directives: No Advance Directives Information Provided: No Do you have a plan to hurt others: No Plan Physical Exam ED Exam Exam: Appearance: Alert. Oriented X3. No acute distress. Eyes: Pupils equal, round and reactive to light. ENT: Pharynx normal. Neck: Normal inspection. Neck supple. No lymph nodes noted. No crepitus CVS: Normal heart rate and rhythm. Pulses normal. Normal S1 and S2 Respiratory: No respiratory distress. Breath sounds normal. No Wheezing. No rales Abdomen: Soft and nontender. No rigidity. No distention. good BS x4 Genital exam was done with nursing present. Patient has a very dry scaly lesion on area just inferior to the labia majora. Near the Skin falls. Appears very dry. Patient claims very pleuritic. There is no gross discharge noted in the vaginal area. Has no abdominal tenderness. Skin: Skin warm and dry. Normal skin color. Normal skin turgor. Extremities: No lower extremity edema. Neurovascular intact to all extremities. No Lacerations. No Rash Neuro: Oriented X 3. No motor deficit. No sensory deficit. Moving all extermities. No slurred speech Vital Signs: Vital Signs - 24 hr 10/31/25 22:16 11/01/25 00:12 Temperature 97.9 F 98.1 F Pulse Rate 85 79 Respiratory Rate 18 16 Blood Pressure 121/71 124/76 Pulse Oximetry 96 99 Oxygen Delivery Method Room Air BMI result Body Mass Index 28.2 Medical Decision Making Medical Decision Making [facility] Narrative: Will send urine off to make sure patient does not have a UTI. test was sent. Will give Rocephin and doxy for possible STD as patient had a yellowish discharge GC chlamydia was sent. Will discharge patient home. Close follow-up advised. Differential Diagnosis Differential Diagnoses: The differential diagnosis associated with the presentation includes STD, eczema, exposure to mice urine Admission/Observation Consideration of admission/observation: Escalation of care including admission/observation considered Lab Data [facility] Lab Attestation statement: I reviewed the patient's lab results. Labs: Lab Results 11/01/25 Range/Units 01:45 Urine Color Yellow Urine Appearance Cloudy Urine pH 7.0 (5.0-9.0) Ur Specific [place] >= 1.030 H (1.005-1.025) Urine Protein Trace (Neg-Trace) mg/dL Urine Glucose (UA) Negative (Negative) mg/dL Urine Ketones Negative (Negative) mg/dL Urine Blood Negative (Negative) Urine Nitrite Negative (Negative) Ur Leukocyte Esterase Small (1+) H (Negative) Urine RBC 0-2 (0-2) /HPF Urine WBC 6-10 H (0-5) /HPF Ur Squamous Epith Cells >20 (0-2) /HPF Urine Bacteria 4+ (None Seen) Hyaline Casts 0-2 (0-2) /LPF Urine Test NEGATIVE (NEGATIVE) Social Determinants Patient?s care significantly limited by Social Determinants of Health including: Problems related to primary support group Discharge Plan Discharge Clinical Impression: Eczema, Possible exposure to STD Patient Disposition: Home, Self-Care Instructions: Sexually Transmitted Diseases (ED), Dermatitis (ED) Prescriptions: New doxycycline hyclate 100 mg capsule 100 mg PO BID 10 Days Qty: 20 0RF hydrocortisone [Anti-Itch (HC)] 1 % cream 1 appl topical TID PRN (Reason: itching) Qty: 28.35 0RF No Action doxylamine-pyridoxine (vit B6) 20-20 mg tablet,IR,delayed rel,biphasic 1 tab PO BID Qty: 20 0RF One-A-Day 400 mcg- 25 mg tablet,chewable 1 tab PO DAILY Qty: 30 0RF tranexamic acid 650 mg tablet 1,300 mg PO TID 5 Days Qty: 30 0RF ibuprofen 400 mg tablet 400 mg PO Q6H PRN (Reason: pain) Qty: 14 0RF Print Language: Vincentian
[2025-11-01 01:56] LABS: Appearance Urine Cloudy; Glucose Urine UA Negative (Negative); PH 7.0 (5.0-9.0); Specific Gravity - Urine >= 1.030 (1.005-1.025); UMIC TRIGGER UACC YES
[2025-11-01 01:57] LABS: UPreg QC Valid YES
[2025-11-01 02:03] LABS: UACC Culture Trigger YES
[2025-11-01] MEDS: cefTRIAXone sodium 500 MG, Lidocaine HCl 1 % MPF 1 ML IM (02:24)
[2025-11-01 02:44] VITALS: BP 115/83; PULSE 92; RESP 16; TEMP 36.8; O2SAT 99
[2025-11-01 04:10] LABS: CT PCR Urine NOT DETECTED (Not Detect.); NG PCR Urine NOT DETECTED (Not Detect.)
== END 2025-11-01 02:45 | disposition home or self-care (01) ==
PROVIDERS: Emergency Provider Emergency Medicine Emergency Medical Services
DX: L30.9 Dermatitis, unspecified (principal); N89.8 Other specified noninflammatory disorders of vagina; Z20.2 Contact with and (suspected) exposure to infections with a predominantly sexual mode of transmission
CPT/HCPCS: 81001; 81025; 87086; 87088; 87147; 87186; 87491; 87591; 96372; 99284; J0696; J2003